=== PATIENT | female | born 1965 ===

== ENCOUNTER 2024-10-13 07:23 | Day surgery (SDC) | payer OTHER ==
[2024-10-10 12:10] LABS: Absolute Eosinophils 0.1 K/uL (0-0.5); Absolute Lymphocytes (CBC) 2.1 K/uL (0.7-4.9); Absolute Monocytes 0.3 K/uL (0.1-1.3); Absolute Neutrophil 2.6 K/uL (1.8-8.0); Basophils % 0.8 % (0-1.3); Eosinophils % 2.5 % (0-4.4); Hematocrit 38.5 % (36.0-45.0); Hemoglobin 13.4 g/dL (12.0-15.0); Lymphocytes % 40.4 % (15.3-44.8); MCH 30.5 pg (27.0-35.0); MCHC 34.8 g/dL (32.0-36.0); MCV 87.5 fL (80-100); MPV 7.3 fL (7.6-11.3); Monocytes % 6.4 % (3.3-12.3); Neutrophils % 49.9 % (41.7-73.7); Platelets 305 thou/uL (152-406); Red Cell Distribution Width 14.5 % (12.1-15.2)
[2024-10-10 12:24] LABS: Anion Gap 10.9 mEq/L (5.0-15.0); Potassium 3.9 mEq/L (3.5-5.1)
[2024-10-13] MEDS: Ringers Lactate 1,000 ML IV ONE (07:50)
[2024-10-13] MEDS ORDERED: propofoL 200 MG/20 ML VIAL IV ONE (07:58)
[2024-10-13] MEDS ORDERED: ONDANSETRON 4 MG/2 ML VIAL ONE (09:18)
[2024-10-13] MEDS ORDERED: GLYCOPYRROLATE 0.2 MG/ML SYR ONE (09:18)
[2024-10-13 10:45] VITALS: O2SAT 97
[2024-10-13 10:47] VITALS: BP 123/70; TEMP 97.4
--- NOTE | 2024-10-16 13:13 | EKG ---
Test Date: 2024-10-10 Test Time: 13:05:46 Curtain Fitter: JOSE MEASUREMENT RESULTS: Intervals: Rate: 67 OH: 110 QRSD: 90 QT: 404 QTc: 426 [place]: P: 53 OH: 110 QRS: 88 T: 93 INTERPRETIVE STATEMENTS: Sinus rhythm with short OH Otherwise normal ECG No previous ECG available for comparison Electronically Signed On 10-16-24 13:03:58 CONSTRUCTION ADMINISTRATOR by Tin Fu
== END 2024-10-13 09:50 | disposition home or self-care (01) ==
LOC: OR 07:23
PROVIDERS: ATTEND Surgery
PROC: 0DBN8ZX Excision of Sigmoid Colon, Via Natural or Artificial Opening Endoscopic, Diagnostic (ICD-10-PCS; principal; 2024-10-13 08:30)
DX: Z12.11 Encounter for screening for malignant neoplasm of colon (principal); K64.4 Residual hemorrhoidal skin tags; K64.8 Other hemorrhoids; K57.30 Diverticulosis of large intestine without perforation or abscess without bleeding; K63.5 Polyp of colon
CPT/HCPCS: 45384; 93005; 85025; 80048; 36415; 88305; J2704; J2405; J7120